=== PATIENT | male | born 1955 | race Caucasian/White ===

== ENCOUNTER 2016-10-17 23:43 | Inpatient (IN) | payer BC ==
[~2016-10-17] VITALS: Ht 180.3 cm; Wt 99.8 kg
[~2016-10-17 23:43] MED LIST: AMLO10TA2 PO; DIAZIDE; HYDR12.53 PO; HYDR25TA9 PO; METF10002 PO; METO25TA9 PO; QUIN10TA7 PO
--- NOTE | 2016-10-18 00:05 | ED.ADGEN ---
Past History Past Medical History: Diabetes, Hypertension, Other Past Surgical History: No Surgical History, Other Alcohol Use: Occasionally Drug Use: None Adult General HPI HPI Patient is a 61-year-old man, history of type 2 diabetes mellitus, hypertension , palpitations, who presents to the emergency department with complaint of worsening palpitations associated with tingling in the fingers, dizziness and diaphoresis today. Patient states that he's been experiencing increasing arrhythmia all day today, described as "skipping beats". Patient has a history of PVCs, which she takes metoprolol, he states that he took an extra half a metoprolol tablet approximate hour prior to arrival in attempt to treat this issue, but he states that the "positive for getting worse", therefore he came to the ED for evaluation. Patient states he was last seen by event staff 2 years ago, when he was diagnosed with arrhythmia. He states that his medical issues are managed by Dr. Matos, he states that he does not experience any chest pain with the symptoms, and that is not currently experiencing any symptoms at all during my evaluation in the ED. states he has had some swelling in his lower extremity as bilaterally recently, which comes and goes, and he believes is due to medications. He states he is occasionally feeling palpitations, and is noted to have occasional PVCs on the monitor. He denies any recent travel or surgery, any history of DVT or PE in himself family members , states he does have a strong family history of heart disease, with both his father and grandfather passing away of [facility] in their early 60s. He states that he has had a stress test previously, and he thinks he may have had a catheterization several years ago but he is not certain. He states he previously did take aspirin, but after he developed blood in his stool he stopped taking aspirin approximately year ago. He is expressing any blood in his stool, any urinary symptoms, any respiratory symptoms, any fevers, chills, injuries or other complaints. He states he experienced similar symptoms 2 years ago when he was diagnosed with Review of Systems Review of Systems Constitutional: Denies fever or chills [] Eyes: Denies change in visual acuity, redness, or eye pain [] HENT: Denies nasal congestion or sore throat [] Respiratory: Denies cough or shortness of breath [] Cardiovascular: No additional information not addressed in HPI [] palpitations. Diaphoresis. Tingling in the fingers. GI: Denies abdominal pain, nausea, vomiting, bloody stools or diarrhea [] : Denies dysuria or hematuria [] Musculoskeletal: Denies back pain or joint pain [] Integument: Denies rash or skin lesions [] Neurologic: Denies headache, focal weakness or sensory changes [] Endocrine: Denies polyuria or polydipsia [] Current Medications Current Medications Current Medications Medications (Trade) Dose Ordered Sig/Antione Start Time Stop Time Status Last Admin Dose Admin Acetaminophen (Tylenol) 650 mg PRN Q4HRS PRN 10/18/16 00:45 10/19/16 00:44 UNV Dextrose 12.5 gm PRN Q15MIN PRN 10/18/16 00:45 UNV Fentanyl Citrate (Fentanyl 2ml Vial) 25 mcg PRN Q15MIN PRN 10/18/16 00:45 10/19/16 00:44 UNV Insulin Aspart (NovoLOG) 0-5 UNITS CONT PRN 10/18/16 00:45 UNV Nitroglycerin (Nitrostat) 0.4 mg PRN Q5MIN PRN 10/18/16 00:45 10/19/16 00:44 UNV Ondansetron HCl (Zofran) 4 mg PRN Q4HRS PRN 10/18/16 00:45 10/19/16 00:44 UNV Allergies Allergies Allergies Coded Allergies Type Severity Reaction Last Updated Verified No Known Drug Allergies 04/10/14 No Physical Exam Physical Exam Constitutional: Well developed, well nourished, no acute distress, non-toxic appearance. [] HENT: Normocephalic, atraumatic, bilateral external ears normal, oropharynx moist, no oral exudates, nose normal. [] Eyes: PERRLA, EOMI, conjunctiva normal, no discharge. [] Neck: Normal range of motion, no tenderness, supple, no stridor. [] Cardiovascular:Heart rate regular rhythm, no murmur, S1, S2, no rubs or gallops. [] Lungs & Thorax: Bilateral breath sounds clear to auscultation, no wheezing, rhonchi, rales. No chest or crepitus or tenderness. [] Abdomen: Bowel sounds normal, soft, no rebound, rigidity, no guarding, no tenderness, no masses, no pulsatile masses. [] Skin: Warm, dry, no erythema, no rash. [] Back: No tenderness, no CVA tenderness. [] Extremities: No tenderness, no cyanosis, no clubbing, ROM intact, trace pedal edema bilaterally, negative Homans sign. Neurologic: Alert and oriented X 3, normal motor function, normal sensory function, no focal deficits noted. [] Psychologic: Affect normal, judgement normal, mood normal. [] Current Patient Data Vital Signs Vital Signs Date Time Temp Pulse Resp B/P (MAP) Pulse Ox O2 Delivery O2 Flow Rate FiO2 10/18/16 00:25 67 18 135/79 (97) 97 Room Air 10/17/16 23:45 98.2 Lab Results Laboratory Tests Test 10/17/16 23:55 White Blood Count 7.9 x10^3/uL (4.0-11.0) Red Blood Count 5.29 x10^6/uL (4.30-5.70) Hemoglobin 16.2 g/dL (13.0-17.5) Hematocrit 46.0 % (39.0-53.0) Mean Corpuscular Volume 87 fL (79-100) Mean Corpuscular Hemoglobin 31 pg (25-35) Mean Corpuscular Hemoglobin Concent 35 g/dL (31-37) Red Cell Distribution Width 13.2 % (11.5-14.5) Platelet Count 210 x10^3/uL (140-400) Neutrophils (%) (Auto) 60 % (31-73) Lymphocytes (%) (Auto) 29 % (24-48) Monocytes (%) (Auto) 7 % (0-9) Eosinophils (%) (Auto) 3 % (0-3) Basophils (%) (Auto) 1 % (0-3) Neutrophils # (Auto) 4.8 x10^3uL (1.8-7.7) Lymphocytes # (Auto) 2.3 x10^3/uL (1.0-4.8) Monocytes # (Auto) 0.5 x10^3/uL (0.0-1.1) Eosinophils # (Auto) 0.2 x10^3/uL (0.0-0.7) Basophils # (Auto) 0.1 x10^3/uL (0.0-0.2) Sodium Level 138 mmol/L (136-145) Potassium Level 3.5 mmol/L (3.5-5.1) Chloride Level 99 mmol/L (98-107) Carbon Dioxide Level 29 mmol/L (21-32) Anion Gap 10 (6-14) Blood Urea Nitrogen 10 mg/dL (8-26) Creatinine 1.0 mg/dL (0.7-1.3) Estimated GFR (Cockcroft-Gault) 75.7 BUN/Creatinine Ratio 10 (6-20) Glucose Level 120 mg/dL (70-99) H Calcium Level 9.3 mg/dL (8.5-10.1) Magnesium Level 2.0 mg/dL (1.8-2.4) Total Bilirubin 0.9 mg/dL (0.2-1.0) Aspartate Amino Transferase (AST) 14 U/L (15-37) L Alanine Aminotransferase (ALT) 28 U/L (16-63) Alkaline Phosphatase 94 U/L (46-116) Troponin I Quantitative < 0.017 ng/mL (0-0.055) QG-Pxi-K-Type Natriuretic Peptide 69 pg/mL (0-124) Total Protein 8.2 g/dL (6.4-8.2) Albumin 4.8 g/dL (3.4-5.0) Albumin/Globulin Ratio 1.4 (1.0-1.7) Lipase 208 U/L (73-393) EKG EKG EC: Sinus rhythm, heart rate 83 beats minute, with occasional PVCs noted , left axis deviation with bifascicular block noted, right ventricular hypertrophy with repolarization normality identified, acute TC of 489, VT 176, QRS of 150, with compared to previous ECG from 04/10/2014, no significant changes identified aside from occasional PVCs as stated. Abnormal ECG. Does not meet STEMI criteria. As interpreted by me. [] Radiology/Procedures Radiology/Procedures Chest x-ray: One view: Patient suddenly rotated, normal cardiac silhouette, top normal mediastinum, no infiltrates, no effusions, no pneumothorax, no soft tissue or bony abnormalities identified. As interpreted by me. [] Course & Med Decision Making Course & Med Decision Making Pertinent Labs and Imaging studies reviewed. (See chart for details) Laboratory studies, chest x-ray and ECG obtained. On comparison to prior, aside from occasional PVCs, no significant morphologic changes identified from patient 's previous ECG performed March 2014. No other concerning findings identified , and his troponin was negative and the ED. Patient states that he is feeling better, blood pressure improved in the ED, is now 130s over 70s, heart rate is in the 60s to low 70s, and he remains asymptomatic at this time, and is rhythm, with occasional PVCs noted on the monitor. No other abnormalities identified during the patient's observation period in the ED. I discussed with patient that with his consolation of symptoms, worsening palpitations, that admission for additional evaluation is appropriate. Patient is in agreement with this plan , I did discuss findings as above and course with Dr. Hernandez, hospitalist on- call. Patient was accepted his service as a full admission to the telemetry floor, for monitoring, and consultation with cardiology. Bridge orders entered per discussion. Final Impression Final Impression [] Problems: Dragon Disclaimer Dragon Disclaimer This electronic medical record was generated, in whole or in part, using a voice recognition dictation system. Departure: Impression: Primary Impression: Dysrhythmia Disposition: ADMITTED INPATIENT Admitting Physician: Lenny Hernandez Condition: IMPROVED JUSTINOSULEIMAN Saldana DO Oct 18, 2016 00:05
[2016-10-18 00:16] LABS: BASO # 0.1 x10^3/uL (0.0-0.2); BASO % 1 % (0-3); EOS # 0.2 x10^3/uL (0.0-0.7); EOS % 3 % (0-3); HEMOGLOBIN 16.2 g/dL (13.0-17.5); LYMPH # 2.3 x10^3/uL (1.0-4.8); LYMPH % 29 % (24-48); MEAN CORPUSCULAR HEMOGLOBIN 31 pg (25-35); MEAN CORPUSCULAR HGB CONC 35 g/dL (31-37); MEAN CORPUSCULAR VOLUME 87 fL (79-100); MONO # 0.5 x10^3/uL (0.0-1.1); MONO % 7 % (0-9); NEUT # 4.8 x10^3uL (1.8-7.7); NEUT % 60 % (31-73); PLATELET COUNT 210 x10^3/uL (140-400); RED BLOOD COUNT 5.29 x10^6/uL (4.30-5.70); RED CELL DISTRIBUTION WIDTH 13.2 % (11.5-14.5); WHITE BLOOD COUNT 7.9 x10^3/uL (4.0-11.0)
[2016-10-18 00:29] LABS: ALBUMIN 4.8 g/dL (3.4-5.0); ALBUMIN/GLOBULIN RATIO 1.4 (1.0-1.7); CALCIUM 9.3 mg/dL (8.5-10.1); GFR 75.7; POTASSIUM 3.5 mmol/L (3.5-5.1); TOTAL BILIRUBIN 0.9 mg/dL (0.2-1.0); TOTAL PROTEIN 8.2 g/dL (6.4-8.2)
[2016-10-18] MEDS ORDERED: ONDANSETRON PF 4 MG/2 ML VIAL. IV PRN (00:45)
[2016-10-18] MEDS ORDERED: fentaNYL PF 100 MCG/2 ML VIAL IV PRN (00:45)
[2016-10-18] MEDS ORDERED: DEXTROSE 50% 25 GM / 50ML DISP.SYRIN. IV PRN (00:45)
[2016-10-18] MEDS ORDERED: ACETAMINOPHEN 325 MG TABLET PO PRN (00:45)
[2016-10-18] MEDS ORDERED: INSULIN ASPART 300 UNITS/3 ML INSULN.PEN SQ SCH (00:45)
[2016-10-18] MEDS ORDERED: NITROGLYCERIN SUBLINGUAL 0.4 MG BOTTLE OF 25. SL PRN (00:45)
[2016-10-18 01:20] VITALS: BP 144/80
[2016-10-18 01:33] LABS: BARBITURATES NEG (NEG); BENZODIAZEPINES NEG (NEG); CANNABINOIDS NEG (NEG); COCAINE NEG (NEG); METHADONE NEG (NEG); OPIATES NEG (NEG); PHENCYCLIDINE NEG (NEG)
[2016-10-18 01:34] LABS: AMPHETAMINE/METHAMPHETAMINE NEG (NEG)
--- NOTE | 2016-10-18 01:54 | ACF ---
Admission Criteria Forms TELEMETRY CARE Telemetry Admission Guidelines (Place 'X' for any and all applicable criteria): Admission to telemetry [A] may be indicated for ANY ONE of the following(1)(2)(3 )(4)(5): [X]I. Cardiac disease, including ANY ONE of the following (9)(10)(11)(12)(13 ): [ ]a) Postacute SD [ ]b) Low-risk patients with ST-segment elevation SD who have undergone successful percutaneous coronary intervention [ ]c) Unstable angina [ ]d) Suspected SD (until it is ruled out) [ ]e) Post cardiac surgery (first 48 to 72 hours unless complications occur) [X]f) Acute arrhythmias (including significant tachycardia or bradycardia) [B] [ ]g) Firing of an implantable cardioverter defibrillator [C] [ ]h) Suspected pacemaker or implantable cardioverter defibrillator malfunction (10) [ ]i) New administration or adjustment of an antiarrhythmic drug [D ] [ ]j) Child admitted for acute congestive heart failure [ ]j) Long QT syndrome [ ]k) Advanced heart block (eg, second-degree Mobitz type II, third- degree heart block) [ ]l) Acute myocarditis or pericarditis [ ]m) Short-term (ambulatory or inpatient) monitoring after a cardiac procedure as indicated by ANY ONE of the following [E]: [ ]i) Electrophysiologic studies [ ]ii) Percutaneous coronary intervention with stent placement [ ]iii) Pacemaker placement with cardiac conduction defect [ ]iv) Implantable cardiac defibrillator placement [ ]II. Drug overdose or poisoning with substance that causes arrhythmias or QT prolongation (eg, phenothiazines, sympathomimetic agents, cyclic antidepressants, digitalis, antiarrhythmic drugs)(15) [ ]III. Short-term (ambulatory or inpatient) monitoring after therapeutic or diagnostic procedure requiring conscious sedation or anesthesia (eg, endoscopy, elective cardioversion) [ ]IV. Acute cerebrovascular even[F](18) [ ]V. Massive blood transfusion (eg, at least 10 units of packed red blood cells in 24 hours) [ ]. Variceal bleeding after endoscopy, sclerotherapy, or IV vasopressin [ ]VII. Uncorrected electrolyte abnormalities associated with an increased risk of dangerous arrhythmia [G]; examples include [ ]a) Hyperkalemia with attributable ECG changes [ ]b) Potassium greater than 6.5 mmol/L (mEq/L) in a patient without history of chronic renal disease [ ]c) Prolonged QT attributed to hypokalemia, hypomagnesemia, or hypocalcemia [ ]VIII.Unexplained syncope or other neurologic event suspected of being due to arrhythmia due to a finding that increases risk; examples include(19)(20)(21): [ ]a) High-risk ECG findings (eg, bifascicular block, bradycardia, abnormal QT interval, ventricular pre- excitation) [ ]b) History of previous syncope due to arrhythmia [ ]c) Abnormal ventricular function (eg, reduced ejection fraction ) [ ]d) Exertional or supine syncope [ ]e) Concerning syncope characteristics (eg, sudden loss of consciousness without prodrome) [ ]f) Family history of sudden [ ]g) Use of arrhythmogenic medication [ ]h) Suspected cardiac ischemia [ ]i) Known channelopathy (eg, long QT syndrome, Brugada syndrome, or catecholaminergic paroxysmal ventricular tachycardia) [ ]j) Known structural heart disease (eg, hypertrophic cardiomyopathy , severe valvular disease) [ ]k) Palpitations preceding syncope The original [employer] content created by [employer] has been revised. The portions of the content which have been revised are identified through the use of italic text or in bold, and [facility] has neither reviewed nor approved the modified material. All other unmodified content is copyright [employer]. Please see references footnoted in the original [employer] edition 2016 Admission Criteria Met?: Yes GUANAKITO SHELDON Oct 18, 2016 01:54
[2016-10-18] MEDS ORDERED: berberine PO (02:07)
[2016-10-18] MEDS ORDERED: METO25TA4 PO (02:08)
[2016-10-18] MEDS ORDERED: QUIN20TA7 PO (02:09)
[2016-10-18] MEDS ORDERED: DOXY25TA42 PO (02:10)
--- NOTE | 2016-10-18 03:56 | EKG ---
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
[2016-10-18 05:17] VITALS: BP 128/81
--- NOTE | 2016-10-18 08:45 | RAD ---
Portable chest, 10/17/2016: History: Chest pain, palpitations Comparison is made to a study from 04/10/2014. The heart size and pulmonary vascularity are normal. The lungs are clear. There is no evidence of pleural fluid. IMPRESSION: No acute cardiopulmonary abnormality is detected.
--- NOTE | 2016-10-18 09:23 | PDOC2 ---
CONSULT Date of Admission DATE: 10/18/16 TIME: 09:21 Reason for Consult: freq PVCs Problem List Problems Medical Problems: (1) Dysrhythmia Status: Acute History of Present Illness Mr Kiser is a 61 year old male with history of hypertension, diabetes and frequent PVCs. He was last seen in 2013 for PVCs and started on metoprolol. He takes this twice daily and reports that initially it helped. He says lately he has been having difficulty with low heart rates in the 40s with associated fatigue. He has also noted increasing palpitations. Yesterday the palpitations were more frequent and he had associated tingling and "funny feeling" in his left arm so he presented for evaluation. He denies chest pain or dyspnea. He denies congestive symptoms. He denies any significant lightheadedness or syncope. He is concerned that his potassium has been low due to his HCTZ so started taking OTC supplements. He also reports some mild intermittent discomfort in his left upper quadrant that seems to improve with food. He was prescribed medication for GERD by his PCP but was concerned about the side effects so has been taking activated charcoal instead and reports it helps. Past Medical History hypertension, hyperlipidemia, diabetes mellitus, lower extremity edema, PVCs, GERD. He also reports an episode of blood in his stool a couple years ago and stopped aspirin at that time which seemed to resolve the issue. He denies any endoscopy. Past Surgical History no significant history Family History premature coronary artery disease in his father and mother. Father of acute ME at age 52. Social History non smoker, occasional ETOH, no illicit drugs Current Medications Current Medications Fentanyl Citrate (Fentanyl 2ml Vial) 25 mcg PRN Q15MIN PRN IV PAIN GREATER THAN 3/10; Start 10/18/16 at 00:45; Stop 10/19/16 at 00:44 Ondansetron HCl (Zofran) 4 mg PRN Q4HRS PRN IV NAUSEA/VOMITING; Start 10/18/16 at 00:45; Stop 10/19/16 at 00:44 Acetaminophen (Tylenol) 650 mg PRN Q4HRS PRN PO FEVER; Start 10/18/16 at 00:45; Stop 10/19/16 at 00:44 Nitroglycerin (Nitrostat) 0.4 mg PRN Q5MIN PRN SL CHEST PAIN; Start 10/18/16 at 00:45; Stop 10/19/16 at 00:44 Insulin Aspart (NovoLOG) 0-5 UNITS CONT PRN SQ ; Start 10/18/16 at 00:45 Dextrose 12.5 gm PRN Q15MIN PRN IV SEE COMMENTS; Start 10/18/16 at 00:45 Active Scripts Active Reported Sleep Aid (Doxylamine Succinate) 25 Mg Tablet 25 Mg PO HS PRN Quinapril Hcl 20 Mg Tablet 1 Tab PO DAILY Metoprolol Tartrate 25 Mg Tablet 1 Tab PO BID [berberine] 1 Cap PO DAILY Hydrochlorothiazide Tablet (Hydrochlorothiazide) 25 Mg Tablet 25 Mg PO DAILY LAST DOSE NEXT DOSE Amlodipine Besylate 10 Mg Tablet 1 Tab PO DAILY Allergies: Coded Allergies: No Known Drug Allergies (Unverified , 04/10/14) Review of System as per HPI or negative General: Alert, Oriented X3, Cooperative, No acute distress HEENT: Atraumatic, EOMI, Mucous membr. moist/pink Lungs: Clear to auscultation, Normal air movement Heart: Regular rate, Normal S1, Normal S2, Other (irregular rhythm, no significant murmurs, clicks or rubs) Abdomen: Normal bowel sounds, Soft, No tenderness Extremities: No cyanosis, Normal pulses, Other (trace ankle/foot edema bilaterally) VITALS Vital Signs Date Time Temp Pulse Resp B/P (MAP) Pulse Ox O2 Delivery O2 Flow Rate FiO2 10/18/16 05:17 97.4 62 20 128/81 (97) 96 Room Air Labs Laboratory Tests Test 10/17/16 23:55 10/18/16 01:10 10/18/16 05:50 10/18/16 07:32 White Blood Count 7.9 x10^3/uL (4.0-11.0) Red Blood Count 5.29 x10^6/uL (4.30-5.70) Hemoglobin 16.2 g/dL (13.0-17.5) Hematocrit 46.0 % (39.0-53.0) Mean Corpuscular Volume 87 fL (79-100) Mean Corpuscular Hemoglobin 31 pg (25-35) Mean Corpuscular Hemoglobin Concent 35 g/dL (31-37) Red Cell Distribution Width 13.2 % (11.5-14.5) Platelet Count 210 x10^3/uL (140-400) Neutrophils (%) (Auto) 60 % (31-73) Lymphocytes (%) (Auto) 29 % (24-48) Monocytes (%) (Auto) 7 % (0-9) Eosinophils (%) (Auto) 3 % (0-3) Basophils (%) (Auto) 1 % (0-3) Neutrophils # (Auto) 4.8 x10^3uL (1.8-7.7) Lymphocytes # (Auto) 2.3 x10^3/uL (1.0-4.8) Monocytes # (Auto) 0.5 x10^3/uL (0.0-1.1) Eosinophils # (Auto) 0.2 x10^3/uL (0.0-0.7) Basophils # (Auto) 0.1 x10^3/uL (0.0-0.2) Sodium Level 138 mmol/L (136-145) Potassium Level 3.5 mmol/L (3.5-5.1) Chloride Level 99 mmol/L (98-107) Carbon Dioxide Level 29 mmol/L (21-32) Anion Gap 10 (6-14) Blood Urea Nitrogen 10 mg/dL (8-26) Creatinine 1.0 mg/dL (0.7-1.3) Estimated GFR (Cockcroft-Gault) 75.7 BUN/Creatinine Ratio 10 (6-20) Glucose Level 120 mg/dL (70-99) Calcium Level 9.3 mg/dL (8.5-10.1) Magnesium Level 2.0 mg/dL (1.8-2.4) Total Bilirubin 0.9 mg/dL (0.2-1.0) Aspartate Amino Transf (AST/SGOT) 14 U/L (15-37) Alanine Aminotransferase (ALT/SGPT) 28 U/L (16-63) Alkaline Phosphatase 94 U/L (46-116) Troponin I Quantitative < 0.017 ng/mL (0-0.055) < 0.017 ng/mL (0-0.055) OC-Fax-P-Type Natriuretic Peptide 69 pg/mL (0-124) Total Protein 8.2 g/dL (6.4-8.2) Albumin 4.8 g/dL (3.4-5.0) Albumin/Globulin Ratio 1.4 (1.0-1.7) Lipase 208 U/L (73-393) Urine Opiates Screen Neg (NEG) Urine Methadone Screen Neg (NEG) Urine Barbiturates Neg (NEG) Urine Phencyclidine Screen Neg (NEG) Urine Amphetamine/Methamphetamine Neg (NEG) Urine Benzodiazepines Screen Neg (NEG) Urine Cocaine Screen Neg (NEG) Urine Cannabinoids Screen Neg (NEG) Urine Ethyl Alcohol N (NEG) Glucose (Fingerstick) 130 mg/dL (70-99) Images EKG - sinus rhythm, bifasicular block, non specific abnormalities Assessment/Plan 1. palpitations/frequent PVCs - check echo. continue beta jie. outpatient MCT for PVC burden and MPI for ischemia. 2. abnormal EKG - bifasicular block, no acute ischemic changes 3. hypertension - resume home medications. Consider stop HCTZ, potassium borderline. increase in diet. 4. diabetes mellitus 5. unk lipid status - check lipids Problems: EDGAR ALTAMIRANO APRN Oct 18, 2016 09:23
[2016-10-18 11:05] VITALS: BP 120/64
--- NOTE | 2016-10-18 12:26 | CARD ---
APPROVED REPORT EXAM: Two-dimensional and M-mode echocardiogram with Doppler and color Doppler. Other Information Quality : GoodHR: 73bpm Rhythm : PVC's INDICATION Frequent ventricular ectopy 2D DIMENSIONS RVDd2.9 (2.9-3.5cm)Left Atrium(2D)3.4 (1.6-4.0cm) IVSd1.2 (0.7-1.1cm)Aortic Root(2D)2.6 (2.0-3.7cm) LVDd5.0 (3.9-5.9cm)LVOT Diameter2.4 (1.8-2.4cm) PWd1.2 (0.7-1.1cm)LVDs2.9 (2.5-4.0cm) FS (%) 41.6 %SV83.9 ml LVEF(%)72.3 (>50%) Aortic Valve AoV Peak Tommy.155.5cm/sAoV VTI28.9cm AO Peak GR.9.7mmHgLVOT Peak Tommy.117.2cm/s LVOT VTI 24.10cmAO Mean GR.5mmHg DANO (VMAX)3.26xh2NQJ (VTI)3.91cm2 Mitral Valve MV E Gvjtwerx97.4cm/sMV DECEL [id number] MV A Jencswau589.9cm/sE/A Ratio0.8 MV A Tujykcmt17ek Pulmonary Valve PV Peak Vdiqbegf211.2cm/sPV Peak Grad.4mmHg Tricuspid Valve TR P. Jffsayuh483nq/sTR Peak Gr.32mmHg Pulmonary Vein S1 Lxcalcwt08.0cm/sD2 Pmjjzikd98.8cm/s LEFT VENTRICLE The left ventricle is normal size. There is mild concentric left ventricular hypertrophy. The left ve ntricular systolic function is normal and the ejection fraction is within normal range. The Ejection Fraction is 65-70%. There is normal LV segmental wall motion. Transmitral Doppler flow pattern is Gra de I-abnormal relaxation pattern. RIGHT VENTRICLE The right ventricle is normal size. There is normal right ventricular wall thickness. The right ventr icular systolic function is normal. ATRIA The left atrium size is normal. The right atrium size is normal. The interatrial septum is intact wit h no evidence for an atrial septal defect or patent foramen ovale as noted on 2-D or Doppler imaging. AORTIC VALVE The aortic valve is normal in structure and function. The aortic valve is trileaflet. Doppler and Col or Flow revealed no significant aortic regurgitation. There is no significant aortic valvular stenosi s. MITRAL VALVE The mitral valve is normal in structure and function. There is no evidence of mitral valve prolapse. There is no mitral valve stenosis. Doppler and Color Flow revealed no mitral valve regurgitation note d. TRICUSPID VALVE Doppler and Color Flow revealed mild tricuspid regurgitation. The pulmonary artery systolic pressure is estimated at 35 mmHg. PULMONIC VALVE Doppler and Color Flow revealed mild pulmonic valvular regurgitation. There is no pulmonic valvular s tenosis by spectral Doppler. GREAT VESSELS The aortic root is normal in size. The ascending aorta is normal in size. The pulmonary artery is nor mal. The IVC is normal in size and collapses >50% with inspiration. PERICARDIAL EFFUSION There is no evidence of significant pericardial effusion. Critical Notification Critical Value: No <Conclusion> The left ventricular systolic function is normal and the ejection fraction is within normal range. Th e Ejection Fraction is 65-70%. There is normal LV segmental wall motion.
--- NOTE | 2016-10-18 13:53 | PDOC3 ---
Discharge Summary Visit Information Date of Admission: Oct 18, 2016 Date of Discharge: Oct 18, 2016 Admitting Diagnosis: palpitation Final Diagnosis Problems Medical Problems: (1) Dysrhythmia Status: Acute Problems: Brief Hospital Course Allergies Allergies Coded Allergies Type Severity Reaction Last Updated Verified No Known Drug Allergies 04/10/14 No Vital Signs Vital Signs Date Time Temp Pulse Resp B/P (MAP) Pulse Ox O2 Delivery O2 Flow Rate FiO2 10/18/16 11:05 98.6 65 20 120/64 (82) 95 Room Air Lab Results Laboratory Tests Test 10/17/16 23:55 10/18/16 01:10 10/18/16 05:50 10/18/16 07:32 White Blood Count 7.9 x10^3/uL (4.0-11.0) Red Blood Count 5.29 x10^6/uL (4.30-5.70) Hemoglobin 16.2 g/dL (13.0-17.5) Hematocrit 46.0 % (39.0-53.0) Mean Corpuscular Volume 87 fL (79-100) Mean Corpuscular Hemoglobin 31 pg (25-35) Mean Corpuscular Hemoglobin Concent 35 g/dL (31-37) Red Cell Distribution Width 13.2 % (11.5-14.5) Platelet Count 210 x10^3/uL (140-400) Neutrophils (%) (Auto) 60 % (31-73) Lymphocytes (%) (Auto) 29 % (24-48) Monocytes (%) (Auto) 7 % (0-9) Eosinophils (%) (Auto) 3 % (0-3) Basophils (%) (Auto) 1 % (0-3) Neutrophils # (Auto) 4.8 x10^3uL (1.8-7.7) Lymphocytes # (Auto) 2.3 x10^3/uL (1.0-4.8) Monocytes # (Auto) 0.5 x10^3/uL (0.0-1.1) Eosinophils # (Auto) 0.2 x10^3/uL (0.0-0.7) Basophils # (Auto) 0.1 x10^3/uL (0.0-0.2) Sodium Level 138 mmol/L (136-145) Potassium Level 3.5 mmol/L (3.5-5.1) Chloride Level 99 mmol/L (98-107) Carbon Dioxide Level 29 mmol/L (21-32) Anion Gap 10 (6-14) Blood Urea Nitrogen 10 mg/dL (8-26) Creatinine 1.0 mg/dL (0.7-1.3) Estimated GFR (Cockcroft-Gault) 75.7 BUN/Creatinine Ratio 10 (6-20) Glucose Level 120 mg/dL (70-99) Calcium Level 9.3 mg/dL (8.5-10.1) Magnesium Level 2.0 mg/dL (1.8-2.4) Total Bilirubin 0.9 mg/dL (0.2-1.0) Aspartate Amino Transf (AST/SGOT) 14 U/L (15-37) Alanine Aminotransferase (ALT/SGPT) 28 U/L (16-63) Alkaline Phosphatase 94 U/L (46-116) Troponin I Quantitative < 0.017 ng/mL (0-0.055) < 0.017 ng/mL (0-0.055) HK-Bdj-H-Type Natriuretic Peptide 69 pg/mL (0-124) Total Protein 8.2 g/dL (6.4-8.2) Albumin 4.8 g/dL (3.4-5.0) Albumin/Globulin Ratio 1.4 (1.0-1.7) Lipase 208 U/L (73-393) Urine Opiates Screen Neg (NEG) Urine Methadone Screen Neg (NEG) Urine Barbiturates Neg (NEG) Urine Phencyclidine Screen Neg (NEG) Urine Amphetamine/Methamphetamine Neg (NEG) Urine Benzodiazepines Screen Neg (NEG) Urine Cocaine Screen Neg (NEG) Urine Cannabinoids Screen Neg (NEG) Urine Ethyl Alcohol N (NEG) Glucose (Fingerstick) 130 mg/dL (70-99) Test 10/18/16 11:51 10/18/16 12:10 Glucose (Fingerstick) 170 mg/dL (70-99) Troponin I Quantitative < 0.017 ng/mL (0-0.055) Brief Hospital Course Mr. Kiser is a 61 old [sex] who presented with [ ] Discharge Information Dischare Medications Current Medications Fentanyl Citrate (Fentanyl 2ml Vial) 25 mcg PRN Q15MIN PRN IV PAIN GREATER THAN 3/10; Start 10/18/16 at 00:45; Stop 10/19/16 at 00:44 Ondansetron HCl (Zofran) 4 mg PRN Q4HRS PRN IV NAUSEA/VOMITING; Start 10/18/16 at 00:45; Stop 10/19/16 at 00:44 Acetaminophen (Tylenol) 650 mg PRN Q4HRS PRN PO FEVER; Start 10/18/16 at 00:45; Stop 10/19/16 at 00:44 Nitroglycerin (Nitrostat) 0.4 mg PRN Q5MIN PRN SL CHEST PAIN; Start 10/18/16 at 00:45; Stop 10/19/16 at 00:44 Insulin Aspart (NovoLOG) 0-5 UNITS CONT PRN SQ ; Start 10/18/16 at 00:45 Dextrose 12.5 gm PRN Q15MIN PRN IV SEE COMMENTS; Start 10/18/16 at 00:45 Active Scripts Active Reported Sleep Aid (Doxylamine Succinate) 25 Mg Tablet 25 Mg PO HS PRN Quinapril Hcl 20 Mg Tablet 1 Tab PO DAILY Metoprolol Tartrate 25 Mg Tablet 1 Tab PO BID [berberine] 1 Cap PO DAILY Hydrochlorothiazide Tablet (Hydrochlorothiazide) 25 Mg Tablet 25 Mg PO DAILY LAST DOSE NEXT DOSE Amlodipine Besylate 10 Mg Tablet 1 Tab PO DAILY TOMI SOFIA MD Oct 18, 2016 13:53
[2016-10-18] MEDS ORDERED: TEMA15CA PO (14:03)
[2016-10-18] MEDS ORDERED: ALPR0.254 PO (14:03)
== END 2016-10-18 15:51 | disposition home or self-care (01) | DRG 309 ==
LOC: ER 23:43 → 1 SOUTH 10-18 00:45
PROVIDERS: ADMIT Family Medicine; ATTEND Family Medicine
DX: I49.3 Ventricular premature depolarization (principal); I45.2 Bifascicular block; E11.9 Type 2 diabetes mellitus without complications; E78.5 Hyperlipidemia, unspecified; I10 Essential (primary) hypertension; K21.9 Gastro-esophageal reflux disease without esophagitis; Z79.899 Other long term (current) drug therapy; Z82.49 Family history of ischemic heart disease and other diseases of the circulatory system; Z72.89 Other problems related to lifestyle
CPT/HCPCS: 36415; 71010; 80053; 80061; 82947; 83690; 83735; 83880; 84443; 84484; 85027; 93005; 93306; G0481; 99285-25